=== PATIENT | female | born 1975 | race Caucasian/White ===

== ENCOUNTER 2018-03-26 20:29 | Emergency (ER) | payer OTHER ==
[~2018-03-26] VITALS: Ht 162.6 cm; Wt 65.8 kg
[~2018-03-26 20:29] MED LIST: BIRTH CONTROL PO; MAGNESIUM SULFATE PO; [UNRECOGNIZED DRUG - REMARK] PO; depression PO
[2018-03-26 20:50] VITALS: BP_SYST 107
[2018-03-26] MEDS ORDERED: TRAZ-123 PO (21:06)
[2018-03-26] MEDS ORDERED: VENL150C53 PO (21:06)
[2018-03-26] MEDS ORDERED: ATOM60CA4 PO (21:08)
[2018-03-26 21:30] LABS: BILIRUBIN,URINE NEGATIVE (NEGATIVE); BLOOD, URINE TRACE (NEGATIVE); CLARITY/URINE CLEAR (CLEAR); COLOR,URINE YELLOW (YELLOW); GLUCOSE,URINE NEGATIVE (NEGATIVE); KETONES,URINE NEGATIVE (NEGATIVE); LEUKOCYTE ESTERASE ,URINE 2+ (NEGATIVE); NITRITE, URINE NEGATIVE (NEGATIVE); PH,URINE 6.5 (5.0-8.0); PROTEIN URINE NEGATIVE (NEGATIVE); UROBILINOGEN,URINE 0.2 (0.2-1.0)
[2018-03-26] MEDS ORDERED: MORPHINE 4 MG/ML INJ. SYRINGE IVP ONE (21:30)
[2018-03-26 21:35] LABS: BACTERIA,URINE FEW /HPF (None Seen)
[2018-03-26] MEDS ORDERED: KETOROLAC TROMETHAMINE 30 MG VIAL IVP ONE (21:45)
[2018-03-26] MEDS ORDERED: cefTRIAXone 1 GM VIAL IM ONE (21:45)
[2018-03-26 22:00] LABS: BASOPHILS # (AUTO) 0.1 K/uL (0.0-0.2); EOSINOPHILS # (AUTO) 0.2 K/uL (0.0-0.4); EOSINOPHILS % (AUTO) 2.6 % (0.0-4.0); HEMATOCRIT 36.7 % (36-48); HEMOGLOBIN 12.7 g/dL (12.0-16.0); LYMPHOCYTES # (AUTO) 3.2 K/uL (1.0-5.5); MEAN CORPUSCULAR HEMOGLOBIN 31 pg (27-31); MEAN CORPUSCULAR HGB CONC 35 % (32-36); MEAN CORPUSCULAR VOLUME 88 fL (79.0-98.0); MONOCYTES # (AUTO) 0.4 K/uL (0.0-1.0); MONOCYTES % (AUTO) 5.2 % (1.7-9.3); NEUTROPHILS # (AUTO) 3.4 K/uL (1.8-7.7); NEUTROPHILS % (AUTO) 47.2 % (40.0-70.0); PLATELET COUNT (AUTO) 313 K/uL (130-430); RED BLOOD CELL COUNT(AUTO) 4.16 MIL/uL (4.2-6.2); RED CELL DISTRIBUTION WIDTH 11.6 % (9.0-15.0); WHITE BLOOD COUNT (AUTO) 7.3 K/uL (4.8-10.8)
[2018-03-26] MEDS ORDERED: LIDOCAINE 1%, 20 ML MDV 20 ML ONE (22:01)
[2018-03-26 22:07] LABS: CALCIUM 8.3 mg/dL (8.4-11.0); CREATININE 1.04 mg/dL (0.55-1.30); POTASSIUM 3.9 mmol/L (3.5-5.1)
[2018-03-26 22:12] LABS: ALBUMIN 3.3 g/dL (3.4-4.8); TOTAL BILIRUBIN 0.3 mg/dL (0.0-1.0)
[2018-03-26] MEDS ORDERED: NACL 0.9% 1,000 ML IV ONE (23:00)
[2018-03-26] MEDS ORDERED: LACTULOSE 20 GM/30 ML UDC PO ONE (23:45)
[2018-03-26 23:56] VITALS: BP_SYST 122
== END 2018-03-26 23:56 | disposition home or self-care (01) ==
LOC: SED 20:29
DX: K59.00 Constipation, unspecified (principal); N39.0 Urinary tract infection, site not specified; F41.9 Anxiety disorder, unspecified; Z88.2 Allergy status to sulfonamides; Z79.899 Other long term (current) drug therapy
CPT/HCPCS: 36415; 74176; 76700; 80053; 81000; 81025; 83690; 85025; 87086; 96372; 96374; 99284; J0696; J1885; J2001; J7030; J2270